=== PATIENT | female | born 1990 | race African-American/Black ===

== ENCOUNTER 2016-12-11 10:40 | Emergency (ER) | payer MEDICAID ==
[~2016-12-11] VITALS: Ht 157.5 cm; Wt 86.2 kg
[~2016-12-11 10:40] MED LIST: ALBUTEROL-200 PUFFS/ IH; ALBUTEROL2 PUFFS/17 IN; IBUPROFEN400 MG PO; IRON TABLETS325 MG PO; IRON325 MG PO; LEVOTHYROXIN0.125 MG PO; MACROBID 100MG100 MG PO; MEDROL 4MG. DOSE4 MG PO; MOTRIN 400MG.400 MG PO; NAPROSYN 500MG500 MG PO; PREDNISONE 20MG20 MG PO; PRENATAL PLUS1 TA1 PO; PRENTAL 1 PLUS1 TAB PO; SULFAMETHOXAZOL1 TA6 PO; TESSALON PERLE100 MG PO; TYLENOL ES500 M1 PO; ULTRACET 325 MG1 TAB PO; VENTOLIN H0.09 MG/AC IH; VOLTAREN75 M1 PO; ZANTAC 150150 MG PO; ZITHROMAX Z PA250 MG PO; [UNRECOGNIZED DRUG - OTHER] EX
--- NOTE | 2016-12-11 11:02 | Emergency Room Report ---
History of Present Illness Time Seen by [id number] Presenting Problem in Triage Pt arrived:Walked Presenting Problem:PT REPORTS LOWER ABD/PELVIC PAIN THAT BEGAN YESTERDAY, PT ALSO REPORTS LOWER BACK CRAMPING THAT BEGAN YESTERDAY. 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 N Clinical Suspician of Infection? N Mental Status: 1 - Regular (Normal Baseline) Sepsis Risk:Low Sepsis Risk Have you (or family members/close friends) recently traveled outside the [place]? N If Yes, where/when: Have you had exposure to infectious disease within the past month? N TB? Other? Specify: Source patient, RN notes reviewed, family, RN/MD Exam Limitations no limitations Comment This is a 26-year-old lady, 16 weeks , presenting to the emergency room with lower abdominal and low back pain, onset yesterday. Patient denies any vaginal bleeding, vaginal discharge. She is A0. Denies dysuria. Patient appears in no acute distress. ALLERGIES Coded Allergies: LACTOSE (FOOD) (VOMITING AND DIARRHEA 01/24/12) Penicillins (04/13/16) Home Medications Reported Medications Levothyroxine Sodium (Levothyroxine 0.125MG) 0.125 MG PO DAILY History Medical History General CAD? No Angina: No [place]: No Hypertension? No Hyperlipidemia? No CHF? No DVT? No PE? No COPD? No Asthma? Yes Anemia? No GERD? No Gastric ulcers? No GI Bleed? No Hernia? No Thyroid Problems? Yes Hypothyroidism? Yes CVA? No Seizures? Yes Diabetes? No Insulin Dependent: No Insulin Pump: No Home FSBS? No Renal Insuffiency? No End Stage Renal Disease? No UTI? No Stones? No BPH? No GB Disease: No Nephritic Syndrome? No Asplenia? No Hepatitis? No Sickle Cell Disease? No Arthritis? No Migraines? No Cataracts? No Glaucoma? No MRSA? No HIV? No TB? No Anxiety? No Depression? No Cancer? No More? 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 4 Months Ago Est.Due Date MAY 25, [address] CISNEROS Social History Smoking Hx Smoker: Current Every Day Smoker Tobacco: Yes Type Cigarettes Packs/day < 1 Pack Alcohol Alcohol: No Review of Systems All Other Systems Reviewed and Negative Gastrointestinal abdominal pain (lower abdominal pain) Musculoskeletal back pain Physical Exam Vital Signs Vital Signs Date Time Temp Pulse Resp B/P Pulse O2 O2 Flow FiO2 Ox Delivery Rate 12/11 1148 81 18 130/72 99 12/11 1051 99.0 86 18 139/75 99 General Appearance normal appearance, WD/WN, no apparent distress Respiratory Status Yes: trachea midline, chest symmetrical, non tender chest. No: respiratory distress. Lung Sounds bilateral: normal breath sounds, lungs clear. 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 No Comment Patient advised to follow-up with ObGyn. Patient's discomfort appears to be consistent with round ligament pain. This was expected the patient will take Tylenol as needed for pain and increase fluid intake. Results/Orders Laboratory Tests 12/11/16 1138: Beta HCG, Quant [id number] 12/11/16 1100: Urine Color YELLOW, Urine Appearance CLEAR, Urine pH 5.5, Ur Specific [place] >= 1.030, Urine Protein NEGATIVE, Urine Ketones 1+ H, Urine Blood TRACE-LYSED, Urine Nitrate NEGATIVE, Urine Bilirubin NEGATIVE, Urine Urobilinogen 0.2, Ur Leukocyte Esterase NEGATIVE, Urine RBC OCC, Urine WBC OCC, Ur Squamous Epith Cells 20-50, Urine Bacteria 2+, Urine Mucus 2+, Urine Glucose NEGATIVE Orders Procedure Date/time Status CULTURE, URINE 12/11 1100 Active US PREG > 14 WEEKS SNGL/GEST 12/11 1051 Active URINALYSIS/COMPLETE 12/11 1051 Complete BETA-HCG, QUANT 12/11 1051 Complete XRAY/CT/US XRAY/CT/US Ultrasound pelvis (transvaginal) US Interpretation by discussed w/radiologist US results 16 weeks IUP, consistent with the stated age and beta hCG Departure Departure Time of Disposition 1142 Disposition DC Home or Self Care(routine) Clinical Impression Primary Impression: Round ligament pain Condition STABLE Referrals Paras PELAEZ,Jonny Caro: 2 Days-Call Office If no better Patient Instructions DI for -- Discomforts and Remedies Additional Instructions Please follow-up with Dr. Cisneros if no better, as instructed. Work excuse attached for today. Take Tylenol for pain, drink more fluids. Discharge Counseling Counseled pt/family regarding diagnosis, test results, medications/RX, home care, follow up needs Comment Please follow-up with Dr. Cisneros if no better, as instructed. Work excuse attached for today. Take Tylenol for pain, drink more fluids. ED Critical Care Critical Care No at 1300
--- NOTE | 2016-12-11 11:02 | Emergency Room Report ---
History of Present Illness Time Seen by [id number] Presenting Problem in Triage Pt arrived:Walked Presenting Problem:PT REPORTS LOWER ABD/PELVIC PAIN THAT BEGAN YESTERDAY, PT ALSO REPORTS LOWER BACK CRAMPING THAT BEGAN YESTERDAY. 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 N Clinical Suspician of Infection? N Mental Status: 1 - Regular (Normal Baseline) Sepsis Risk:Low Sepsis Risk Have you (or family members/close friends) recently traveled outside the [place]? N If Yes, where/when: Have you had exposure to infectious disease within the past month? N TB? Other? Specify: Source patient, RN notes reviewed, family, RN/MD Exam Limitations no limitations Comment This is a 26-year-old lady, 16 weeks , presenting to the emergency room with lower abdominal and low back pain, onset yesterday. Patient denies any vaginal bleeding, vaginal discharge. She is A0. Denies dysuria. Patient appears in no acute distress. ALLERGIES Coded Allergies: LACTOSE (FOOD) (VOMITING AND DIARRHEA 01/24/12) Penicillins (04/13/16) Home Medications Reported Medications Levothyroxine Sodium (Levothyroxine 0.125MG) 0.125 MG PO DAILY History Medical History General CAD? No Angina: No [place]: No Hypertension? No Hyperlipidemia? No CHF? No DVT? No PE? No COPD? No Asthma? Yes Anemia? No GERD? No Gastric ulcers? No GI Bleed? No Hernia? No Thyroid Problems? Yes Hypothyroidism? Yes CVA? No Seizures? Yes Diabetes? No Insulin Dependent: No Insulin Pump: No Home FSBS? No Renal Insuffiency? No End Stage Renal Disease? No UTI? No Stones? No BPH? No GB Disease: No Nephritic Syndrome? No Asplenia? No Hepatitis? No Sickle Cell Disease? No Arthritis? No Migraines? No Cataracts? No Glaucoma? No MRSA? No HIV? No TB? No Anxiety? No Depression? No Cancer? No More? 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 Months Ago Est.Due Date MAY 25, [address] CISNEROS Social History Smoking Hx Smoker: Current Every Day Smoker Tobacco: Yes Type Cigarettes Packs/day < 1 Pack Alcohol Alcohol: No Review of Systems All Other Systems Reviewed and Negative Gastrointestinal abdominal pain (lower abdominal pain) Musculoskeletal back pain Physical Exam Vital Signs Vital Signs Date Time Temp Pulse Resp B/P Pulse O2 O2 Flow FiO2 Ox Delivery Rate 12/11 1148 81 18 130/72 99 12/11 1051 99.0 86 18 139/75 99 General Appearance normal appearance, WD/WN, no apparent distress Respiratory Status Yes: trachea midline, chest symmetrical, non tender chest. No: respiratory distress. Lung Sounds bilateral: normal breath sounds, lungs clear. 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 No Comment Patient advised to follow-up with ObGyn. Patient's discomfort appears to be consistent with round ligament pain. This was expected the patient will take Tylenol as needed for pain and increase fluid intake. Results/Orders Laboratory Tests 12/11/16 1138: Beta HCG, Quant [id number] 12/11/16 1100: Urine Color YELLOW, Urine Appearance CLEAR, Urine pH 5.5, Ur Specific [place] >= 1.030, Urine Protein NEGATIVE, Urine Ketones 1+ H, Urine Blood TRACE-LYSED, Urine Nitrate NEGATIVE, Urine Bilirubin NEGATIVE, Urine Urobilinogen 0.2, Ur Leukocyte Esterase NEGATIVE, Urine RBC OCC, Urine WBC OCC, Ur Squamous Epith Cells 20-50, Urine Bacteria 2+, Urine Mucus 2+, Urine Glucose NEGATIVE Orders Procedure Date/time Status CULTURE, URINE 12/11 1100 Active US PREG > 14 WEEKS SNGL/GEST 12/11 1051 Active URINALYSIS/COMPLETE 12/11 1051 Complete BETA-HCG, QUANT 12/11 1051 Complete XRAY/CT/US XRAY/CT/US Ultrasound pelvis (transvaginal) US Interpretation by discussed w/radiologist US results 16 weeks IUP, consistent with the stated age and beta hCG Departure Departure Time of Disposition 1142 Disposition DC Home or Self Care(routine) Clinical Impression Primary Impression: Round ligament pain Condition STABLE Referrals Paras PELAEZ,Jonny Caro: 2 Days-Call Office If no better Patient Instructions DI for -- Discomforts and Remedies Additional Instructions Please follow-up with Dr. Cisneros if no better, as instructed. Work excuse attached for today. Take Tylenol for pain, drink more fluids. Discharge Counseling Counseled pt/family regarding diagnosis, test results, medications/RX, home care, follow up needs Comment Please follow-up with Dr. Cisneros if no better, as instructed. Work excuse attached for today. Take Tylenol for pain, drink more fluids. ED Critical Care Critical Care No at 1305
[2016-12-11 11:09] LABS: URINE BILIRUBIN - DIPSTICK NEGATIVE (NEG); URINE BLOOD TRACE-LYSED (NEG)
[2016-12-11 11:18] LABS: URINE SQUAMOUS CELLS 20-50 #/hpf (0-5)
--- OUTSIDE RECORDS SUMMARY | 2016-12-11 11:24 | External Medical Summary Rpt ---
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 AMPLIFIED PROBE TQ IADNA 32886 PICKLESIM PICKLESIM NEISSERIA 3 ER JR YAO ER JR YAO GONORRHOE AE AMPLIFIED PROBE TQ BLOOD 22222 FAMILY FAMILY COUNT 3 CARE CARE COMPLETE ASSOCIATE ASSOCIATE AUTO&AUTO S S DIFRNTL WBC BLOOD 81171 CARLA Adamson COUNT 3 G G COMPLETE AUTO&[place] [address] CARLA Adamson THYROID 3 [place] [address] CARLA Adamson FREE 3 G G THYROXINE COMPREHEN 40853 COMBINED COMBINED SIVE 3 PHYSICIAN PHYSICIAN METABOLIC S LA S LA PANEL URINE 28487 CARLA Adamson 3 G G TEST VISUAL COLOR CMPRSN METHS 25 52776 COMBINED COMBINED HYDROXY 3 PHYSICIAN PHYSICIAN INCLUDES S LA S LA FRACTIONS IF PERFORMED US SOFT 08517 [facility] ROBBINS TISSUE 2 [facility] HEAD & INC INC NECK REAL TIME IMGE DOCM THYROID 48381 COMBINED COMBINED HORM 2 PHYSICIAN PHYSICIAN UPTK/THYR S LA S [place] [address] COMBINED COMBINED THYROXINE 2 PHYSICIAN [place] [address] COMBINED COMBINED THYROID 2 PHYSICIAN PHYSICIAN STIMULATI S LA S LA NG HORMONE TSH COLLECTIO 73678 FAMILY FAMILY N VENOUS 2 CARE CARE BLOOD ASSOCIATE ASSOCIATE VENIPUNCT S S URE SKIN TEST 08793 LAFLEUR LAFLEUR 2 GABRIEL GABRIEL TUBERCULO SIS INTRADERM AL CYTP C/V 02091 PATHOLOGY PICKLESIM AUTO THIN 2 & ER JR YAO LYR CYTOLOGY PREPJ SCR LAB MNL RESCR PHYS NEURAXIAL 52607 [facility] LABOR 2 ANESTH ANALG/ANE OF THE S PLND BLUE VAGINAL DELIVERY VAGINAL 16721 AMELIA CISNEROS DELIVERY 2 EMILY EMILY ONLY W/POSTPAR VINNIE CARE OTHER 7359 [facility] ROBBINS MANUALLY 2 [facility] ASSISTED INC INC DELIVERY INITIAL 82833 AMELIA CISNEROS OBSERVATI 2 EMILY EMILY ON CARE/DAY 50 MINUTES BLOOD 81228 STRAWZELL LUIS AYA COUNT 2 CRI COMPLETE AUTO&AUTO DIFRNTL WBC GLUCOSE 07012 AMELIA CISNEROS TOLERANCE 2 EMILY EMILY TEST GTT 3 SPECIMENS 90368 [facility] ROBBINS NONSTRESS 2 [facility] TEST INC INC SMR PRIM 77878 [facility] ROBBINS SRC WET 2 [facility] MOUNT INC INC NFCT AGT US PREG 78928 AMELIA CISNEROS UTERUS 2 EMILY EMILY AFTER 1ST TRIMEST 1/ GESTATION US PREG 65923 [facility] UTERUS 1 YAZDANISM YAZDANISM W/DETAIL HOSP HOSP YASSINE 1ST GESTATION ALPHA-FET 99315 ROS[facility]O ROBBINS OPROTEIN 1 [facility] SERUM INC INC GONADOTRO 02216 [facility] ROBBINS PIN 1 [facility] CH[place] [address] [facility] ROBBINS ESTRIOL 1 [facility] [place] PREG 31785 WOMEN'S AMELIA UTERUS 1 HEALTH EMILY REAL TIME CLINIC OF W/IMAGE GABRIEL DCMTN TRANSVAG BLOOD 84949 FAMILY FAMILY COUNT 1 CARE CARE COMPLETE ASSOCIATE ASSOCIATE AUTO&AUTO S S DIFRNTL WBC IAADI 11116 [facility] ROBBINS INFLUENZA 1 [facility] B VIRUS INC INC IAADI 82808 [facility] ROBBINS INFFLUENZ 1 [facility] A A VIRUS INC INC CYTP C/V 42388 PATHOLOGY PATHOLOGY AUTO THIN 1 & & LYR CYTOLOGY CYTOLOGY PREPJ SCR LAB LAB MNL RESCR PHYS MOLEC 05941 MOLECULAR MOLECULAR ISOL/XTRJ 1 HP PATHOLOGY PATHOLOGY NUCLEIC LAB NETW LAB NETW ACID EA TYPE MOLECULAR 77919 MOLECULAR MOLECULAR DX AMP 1 TARGET PATHOLOGY PATHOLOGY MULTIPLEX LAB NETW LAB NETW 1ST 2 SEQ MOLECULAR 75561 MOLECULAR MOLECULAR 1 DIAGNOSTI PATHOLOGY PATHOLOGY CS LAB NETW LAB NETW INTERPRET ATION & REPORT MUTATION 49698 MOLECULAR MOLECULAR ID 1 ENZYMATIC PATHOLOGY PATHOLOGY LAB NETW LAB NETW LIG/PRIME R XTN 1 SGM EA IADNA 87906 PATHOLOGY PATHOLOGY CHLAMYDIA 1 & & CYTOLOGY CYTOLOGY TRACHOMAT LAB LAB IS AMPLIFIED PROBE TQ MOLECULAR 12141 MOLECULAR MOLECULAR DX AMP 1 TARGET PATHOLOGY PATHOLOGY MULTIPLEX LAB NETW LAB NETW EA ADDL SEQ MOLEC 08593 MOLECULAR MOLECULAR SEP&ID HI 1 RESOLU PATHOLOGY PATHOLOGY TQ EACH LAB NETW LAB NETW NUCLEIC ACID PREP IADNA 43074 PATHOLOGY PATHOLOGY NEISSERIA 1 & & CYTOLOGY CYTOLOGY GONORRHOE LAB LAB AE AMPLIFIED PROBE TQ URNLS DIP 08374 [facility] ROBBINS 1 [facility] STICK/TAB INC INC LET REAGENT AUTO MICROSCOP Y US PREG 42945 [place] TOÑITO UTERUS 1 MEDICAL JOSE REAL TIME IMAGING W/IMAGE ASS DCMTN TRANSVAG CULTURE 35056 [facility] ROBBINS BACTERIAL 1 [facility] INC INC QUANTTATI VE COLONY COUNT URINE URNLS DIP 91607 ROS[facility] ROSENDO 1 [facility] STICK/TAB INC INC LET REAGENT AUTO MICROSCOP Y URINE 87195 ROSENDO ROSENDO 1 [facility] CENTER VISUAL COLOR CMPRSN METHS URINE 45923 ROSENDO ROSENDO 1 [facility] TEST INC INC VISUAL COLOR CMPRSN METHS CULTURE 06249 [facility] ROBBINS BACTERIAL 1 [facility] INC INC QUANTTATI VE COLONY COUNT URINE CULTURE 79768 [facility] ROBBINS BCT 1 [facility] ISOL&PRSM INC INC PTV ID ISOLATE EA URINE URNLS DIP 05352 [facility] ROBBINS 1 [facility] STICK/TAB INC INC LET REAGENT AUTO MICROSCOP Y SUSCEPTIB 71310 [facility] ROBBINS LTY STDY 1 [facility] ANTIMICRB INC INC IAL MICRO/AGA R DILUTJ US BREAST 59079 [place] TOÑITO REAL 1 MEDICAL JOSE TIME IMAGING W/IMAGE ASS DOCUMENTA TION CYTP 48720 [facility] CERV/VAG 1 [place] INC AUTO THIN LAYER PREP MNL SCREEN BLOOD 85250 FAMILY FAMILY COUNT 0 CARE CARE COMPLETE ASSOCIATE ASSOCIATE AUTO&AUTO S S DIFRNTL WBC BLOOD 94354 FAMILY FAMILY COUNT 0 CARE CARE COMPLETE ASSOCIATE ASSOCIATE AUTO&AUTO S S DIFRNTL WBC IADNA 62371 [facility] ROBBINS CHLAMYDIA 0 [facility] C[facility] TRACHOMAT IS AMPLIFIED PROBE TQ CONTRACEP A4267 [facility] ROBBINS TIVE 0 [facility] SUPPLY CHESTER CENTER CONDOM MALE EACH IADNA 59770 ROS[facility] ROBBINS NEISSERIA 0 [facility] GONORRHOE AE AMPLIFIED PROBE TQ DME A9900 ROS[facility] ROBBINS SUP/ACCES 0 [facility] HEALTH S/SRV-COM CENTER CENTER ARACELI/OTH HCPCS URINE 51006 ROS[facility] ROBBINS 0 [facility] TEST CENTER CENTER [place] [address] ROS[facility]O ROBBINS LIPASE 0 [place] [address] ROSENDO ROBBINS THYROID 0 [facility] STIMULATI [place] [address] [facility] ROBBINS AMYLASE 0 [facility] INC INC COMPREHEN 44409 [facility] ROBBINS SIVE 0 [facility] METABOLIC INC INC PANEL IADNA 75450 MEDICAL MEDICAL NEISSERIA 0 [facility] GONORRHOE AE AMPLIFIED PROBE TQ IADNA 94176 MEDICAL MEDICAL CHLAMYDIA 0 [facility] TRACHOMAT IS AMPLIFIED PROBE TQ IADNA NOS 76038 MEDICAL MEDICAL 0 DIAGNOSTI DIAGNOSTI AMPLIFIED [facility] PROBE TQ EACH ORGANISM IADNA 41391 MEDICAL MEDICAL DENNY 0 [facility]AGNOSTI DIAGNOST[facility] SPECIES [facility] AMPLIFIED PROBE TQ IADNA 96583 MEDICAL MEDICAL GARDNEREL 0 DIAGNOSTI DIAGNOSTI LA [facility] VAGINALIS AMPLIFIED PROBE TQ DEEP D9220 [facility] SEDATION/ 0 , KAVEH LINN W W ANESTHESI A-1ST 30 MINUTES THER 06659 [facility] PROPH/DX 0 , KAVEH LINN NJX IV W W PUSH SINGLE/1S T SBST/DRUG GROUND A0425 [facility] 9 AMBULANCE AMBULANCE PER SERVICE SERVICE STATUTE MILE AMBULANCE A0429 [facility] SERVICE 9 AMBULANCE AMBULANCE BLS [place]ICE [place] [address] [place] TOÑITO, MAXILLOFA 9 MEDICAL NGHIA CIAL W/O IMAGING CONTRAST ASSOCIATE MATERIAL S 3D 13660 [facility] ROBBINS RENDERING 9 [facility] INC INC W/INTERP& POSTPROC DIFF WORK STATION OPH 37422 MARK ANTHONY GONZALEZ [facility] 9 VISION BROOKE A XM&EVAL COMPRHNSV ESTAB PT 1/> COMPREHEN 65388 COMBINED COMBINED SIVE 9 PHYSICIAN PHYSICIAN METABOLIC S LAB S LAB PANEL PROTHROMB 70143 COMBINED COMBINED IN TIME 9 PHYSICIAN PHYSICIAN S LAB S LAB THROMBOPL 49993 COMBINED COMBINED ASTIN 9 PHYSICIAN PHYSICIAN TIME S LAB S LAB PARTIAL PLASMA/WH OLE BLOOD BLOOD 90281 FAMILY SIMIN, COUNT 9 CARE GHAZAL T COMPLETE ASSOCIATE AUTO&AUTO S DIFRNTL WBC CONTRACEP J7303 [facility]/CO [facility] T SUPPLY 9 [facility] HORMONE [facility] CONTAININ BANK ACCT G VAG RING EA URINE 42609 DHS/CO [facility] 9 [facility] TEST [facility] VISUAL BANK ACCT COLOR CMPRSN METHS IADNA 17371 [facility] NEISSERIA 9 [facility] GONORRHOE BANK ACCT AE AMPLIFIED PROBE TQ SMR PRIM 90601 [facility] SRC WET 9 [facility] MOUNT [facility] NFCT AGT BANK ACCT IADNA 40384 [facility] CHLAMYDIA 9 [facility] TRACHOMAT BANK ACCT IS AMPLIFIED PROBE TQ CONTRACEP A4267 [facility]/CO [facility] TIVE 9 [facility] SUPPLY [facility] CONDOM BANK ACCT MALE EACH CYTP 16259 [facility] CERV/VAG 9 [facility] AUTO THIN [facility] LAYER BANK ACCT PREP MNL SCREEN RADIOLOGI 81755 Mary MICHAEL EXAM 9 MEDICAL [place] CHEST 2 IMAGING VIEWS ASSOCIATE FRONTAL&L S ATERAL BLOOD 75821 Snow MELENDEZ COUNT 8 CARE G COMPLETE ASSOCIATE AUTO&AUTO S DIFRNTL WBC IAADIADOO 02430 Snow MELENDEZ 8 CARE G STREPTOCO ASSOCIATE CCUS S GROUP A PARTICLE 72712 COMBINED COMBINED AGGLUTINA 8 PHYSICIAN PHYSICIAN TION S LAB S LAB SCREEN EACH ANTIBODY IADNA 77224 [facility] NEISSERIA [address] [place] [address] GONORRHOE BANK ACCT AE AMPLIFIED PROBE TQ CYTP 01577 DHS/CO [facility] CERV/VAG 8 [facility] AUTO THIN [facility] LAYER BANK ACCT PREP MNL SCREEN IADNA 64560 [facility]/CO [facility] CHLAMYDIA [address] [place] [address] TRACHOMAT BANK ACCT IS AMPLIFIED PROBE TQ CONTRACEP A4267 DHS/CO [facility] TIVE [address] [place] [address] SUPPLY [facility] CONDOM BANK ACCT MALE EACH CONTRACEP J7303 [facility]/CO [facility] T SUPPLY [address] [place] [address] HORMONE [facility] CONTAININ BANK ACCT G VAG RING EA Encounters Encounter Start End Date Code Location Performer Type Date OFFICE 44575 [facility] AMELIA MATHEW 7 7 PHYSICIAN T VISIT S GROUP 25 MINUTES EMERGENCY 88914 KYE CARTER 6 6 PHYSICIAN MANUEL DEPARTMEN S, PLLC T VISIT MODERATE SEVERITY [facility]OSP[facility] - 6 6 [facility] OUTPATIEN INC T EMERGENCY 51014 [facility] 6 6 [facility] DEPARTMEN INC T VISIT LIMITED/M INOR PROB OFFICE 49217 [facility] MARK OUTPATIEN 6 6 PHYSICIAN MOON T VISIT S GROUP 15 MINUTES HOSPITAL [facility] - 6 6 [facility] OUTPATIEN INC T OFFICE 03042 [facility] FLORES OUTPATIEN 6 6 PHYSICIAN MOON T NEW 30 S GROUP MINUTES HOSPITAL [facility] - 6 6 [facility] OUTPATIEN INC T PERIODIC 51715 FAMILY MULBERRY PREVENTIV 6 6 CARE ARMANI E MED EST ASSOCIATE PATIENT S 18-39 YRS OFFICE 42680 [facility] RAMAN PAK OUTPATIEN 5 5 PHYSICIAN T VISIT S GROUP 15 MINUTES OFFICE 10140 [facility] RIZO OUTPATIEN 5 5 [facility] 15 MINUTES HOSPITAL 1021-201 10-21-201 [facility] - 5 5 [facility] OUTPATIEN INC T HOSPITAL [facility] - 5 5 [facility] OUTPATIEN INC T OFFICE 32753 [facility] PETTEY OUTPATIEN 5 5 PHYSICIAN JAM T NEW 30 S GROUP MINUTES HOSPITAL [facility] - 5 5 [facility] OUTPATIEN INC HOSPITAL [facility] - 5 5 [facility] OUTPATIEN INC T OFFICE 57934 FAMILY CROWDY OUTPATIEN 5 5 CARE CRI T VISIT ASSOCIATE 25 S MINUTES EMERGENCY 20479 KYE CARTER 5 5 PHYSICIAN MANUEL DEPARTMEN S, PLLC T VISIT HIGH/URGE NT SEVERITY OFFICE 72507 [facility] EMMA OUTPATIEN 4 4 PHYSICIAN MANUEL T NEW 20 S GROUP MINUTES PERIODIC 17590 [facility] PREVENTIV 4 4 PHYSICIAN E MED EST S GROUP PATIENT 18-39 YRS Inpatient IMP Rosendo Cisneros MD (IN) 3 04:55 3 15:20 [facility] - 3 3 [facility] INPATIENT INC OFFICE 57832 AMELIA CISNEROS OUTPATIEN 3 3 EMILY EMILY T VISIT 15 MINUTES OFFICE 43111 AMELIA CISNEROS OUTPATIEN 3 3 EMILY EMILY T VISIT 15 MINUTES OFFICE 05279 CISNEROS CISNEROS OUTPATIEN 3 3 EMILY EMILY T VISIT 15 MINUTES OFFICE 37983 HARPEL HARPEL OUTPATIEN 3 3 MARLENY MARLENY T VISIT 15 MINUTES OFFICE 45154 AMELIA CISNEROS OUTPATIEN 3 3 EMILY EMILY T VISIT 15 MINUTES OFFICE 02921 AMELIA CISNEROS OUTPATIEN 3 3 EMILY EMILY T VISIT 15 MINUTES OFFICE 69529 AMELIA CISNEROS OUTPATIEN 3 3 EMILY EMILY T VISIT 15 MINUTES OFFICE 73436 AMELIA CISNEROS OUTPATIEN 3 3 EMILY EMILY T VISIT 5 MINUTES OFFICE 49929 AMELIA CISNEROS OUTPATIEN 3 3 EMILY EMILY T VISIT 15 MINUTES OFFICE 27961 MULBERRY MULBERRY OUTPATIEN 3 3 ARMANI ARMANI T VISIT 15 MINUTES OFFICE 93896 AMELIA CISNEROS OUTPATIEN 3 3 EMILY EMILY T VISIT 15 MINUTES OFFICE 07725 FAMILY OUTPATIEN 3 3 CARE T VISIT ASSOCIATE 15 S MINUTES OFFICE 54363 CARLA Adamson OUTPATIEN 3 3 G G T VISIT 15 MINUTES HOSPITAL [facility] - 2 2 [facility] OUTPATIEN INC T OFFICE 38558 FAMILY OUTPATIEN 2 2 CARE T VISIT ASSOCIATE 15 S MINUTES HOSPITAL [facility] - 2 2 [facility] OUTPATIEN INC T EMERGENCY 34943 TROY BHAT 2 2 EMERGENCY DEPARTMEN SERVICES T VISIT HIGH/URGE NT SEVERITY EMERGENCY 89816 [facility] 2 2 [facility] DEPARTMEN INC T VISIT LOW/MODER SEVERITY EMERGENCY 76453 EMMA CARTER 2 2 MANUEL MANUEL DEPARTMEN T VISIT HIGH/URGE NT SEVERITY EMERGENCY 28064 [facility] 2 2 [facility] DEPARTMEN INC T VISIT LIMITED/M INOR PROB HOSPITAL [facility] - 2 2 [facility] OUTPATIEN INC T PERIODIC 86030 JAVIER HERRERA PREVENTIV 2 2 MARIANA MARIANA E MED EST PATIENT 18-39 YRS HOSPITAL [facility] - 2 2 [facility] INPATIENT INC OFFICE 43677 STRAWZELL STRAWZELL OUTPATIEN 2 2 CRI CRI T VISIT 15 MINUTES OFFICE 61868 AMELIA CISNEROS OUTPATIEN 2 2 EMILY EMILY T VISIT 5 MINUTES OFFICE 19274 CISNEROS CISNEROS OUTPATIEN 2 2 EMILY EMILY T VISIT 15 MINUTES HOSPITAL [facility] - 2 2 [facility] OUTPATIEN INC T OFFICE 62279 LUIS WILLARD CONSULTAT 1 1 JOSE JOSE ION NEW/ESTAB PATIENT 30 MIN HOSPITAL CENTRAL - 1 1 YAZDANISM OUTPATIEN HOSP T HOSPITAL [facility] - 1 1 [facility] OUTPATIEN INC T OFFICE 71478 [facility] OUTPATIEN 1 1 HEALTH EMILY T VISIT CLINIC OF 15 GABRIEL MINUTES OFFICE 80383 FAMILY SIMIN OUTPATIEN 1 1 CARE ARMANI T VISIT ASSOCIATE 15 S MINUTES EMERGENCY 34910 [facility] 1 1 [facility] DEPARTMEN INC T VISIT LOW/MODER SEVERITY EMERGENCY 77875 TROY CARTER 1 1 EMERGENCY MANUEL DEPARTMEN SERVICES T VISIT HIGH/URGE NT SEVERITY HOSPITAL [facility] - 1 1 [facility] OUTPATIEN INC T EMERGENCY 03467 [facility] 1 1 [facility] DEPARTMEN INC T VISIT LOW/MODER SEVERITY [facility]OSPITAL [facility] - 1 1 [facility] OUTPATIEN INC T EMERGENCY 80889 TROY MISHRA 1 1 EMERGENCY DEPARTMEN SERVICES T VISIT HIGH/URGE NT SEVERITY EMERGENCY 69587 [facility] 1 1 [facility] DEPARTMEN INC T VISIT LOW/MODER SEVERITY EMERGENCY 96153 TROY MISHRA 1 1 EMERGENCY DEPARTMEN SERVICES T VISIT HIGH/URGE NT SEVERITY HOSPITAL [facility] - 1 1 [facility] OUTPATIEN INC T OFFICE 82704 [facility] ROBBINS OUTPATIEN 1 1 [facility] T VISIT CENTER CENTER 15 MINUTES HOSPITAL [facility] - 1 1 [facility] OUTPATIEN INC T OFFICE 40981 FAMILY DUVAL OUTPATIEN 1 1 CARE ARMANI T VISIT ASSOCIATE 15 S MINUTES HOSPITAL [facility] - 1 1 [facility] OUTPATIEN INC T OFFICE 44678 FAMILY DUVAL OUTPATIEN 0 0 CARE ARMANI T VISIT ASSOCIATE 15 S MINUTES OFFICE 19143 FAMILY SIMIN OUTPATIEN 0 0 CARE ARMANI T VISIT ASSOCIATE 15 S MINUTES OFFICE 31245 [facility] ROBBINS OUTPATIEN 0 0 [facility] T VISIT CENTER CENTER 15 MINUTES HOSPITAL [facility] - 0 0 [facility] OUTPATIEN INC T EMERGENCY 01816 [facility] 9 9 [facility] DEPARTMEN INC T VISIT LOW/MODER SEVERITY [facility]OSPITAL [facility] - 9 9 [facility] OUTPATIEN INC T EMERGENCY 79980 TROY BAEZ, 9 9 EMERGENCY JHON DEPARTMEN SERVICES O T VISIT HIGH/URGE ASSOCIATE NT S SEVERITY OFFICE 68041 KATNABILAMICHELLEEN 9 9 CARE GHAZAL T T VISIT ASSOCIATE 25 S MINUTES PERIODIC 54457 [facility] PREVENTIV 9 9 [facility] PATIENT BANK ACCT [facility] - 9 9 [facility] OUTPATIEN INC T EMERGENCY 40345 [facility] 9 9 [facility] DEPARTMEN INC T VISIT LOW/MODER SEVERITY EMERGENCY 94975 TROY CARTER, 9 9 EMERGENCY MELAI DEPARTMEN SERVICES T VISIT HIGH/URGE ASSOCIATE NT S SEVERITY OFFICE 85150 Snow MELENDEZ 8 8 CARE G T VISIT ASSOCIATE 15 S MINUTES INITIAL 18920 [facility] PREVENTIV 8 8 HEALTH IN HEALTH E [facility] MEDICINE BANK ACCT NEW PT AGE 12-17 YR
--- OUTSIDE RECORDS SUMMARY | 2016-12-11 11:24 | External Medical Summary Rpt ---
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 INC T VISIT LIMITED/M INOR PROB OFFICE 64920 [facility] MARK OUTPATIEN 6 6 PHYSICIAN MOON T VISIT S GROUP 15 MINUTES HOSPITAL [facility] - 6 6 [facility] T OFFICE 93324 [facility] FLORES OUTPATIEN 6 6 PHYSICIAN MOON T NEW 30 S GROUP MINUTES HOSPITAL [facility] 6 6 [facility] OUTPATIEN INC T PERIODIC 14441 FAMILY MULBERRY PREVENTIV 6 6 CARE ARMANI E MED EST ASSOCIATE PATIENT S 18-39 YRS OFFICE 90113 [facility] RAMAN PAK OUTPATIEN 5 5 PHYSICIAN T VISIT S GROUP 15 MINUTES OFFICE 04114 [facility] RIZO OUTPATIEN 5 5 [facility] 15 MINUTES HOSPITAL 1021-201 10-21-201 [facility] - 5 5 [facility] OUTPATIEN INC T HOSPITAL [facility] - 5 5 [facility] OUTPATIEN INC T OFFICE 31797 [facility] PETTEY OUTPATIEN 5 5 PHYSICIAN JAM T NEW 30 S GROUP MINUTES HOSPITAL [facility] 5 5 [facility] OUTPATIEN INC HOSP[facility] - 5 5 [facility] OUTPATIEN INC T OFFICE 66119 FAMILY CROWDY OUTPATIEN 5 5 CARE CRI T VISIT ASSOCIATE 25 S MINUTES EMERGENCY 19356 KYE CARTER 5 5 PHYSICIAN MANUEL DEPARTMEN S, PLLC T VISIT HIGH/URGE NT SEVERITY OFFICE 11894 [facility] EMMA OUTPATIEN 4 4 PHYSICIAN MANUEL T NEW 20 S GROUP MINUTES PERIODIC 59601 [facility] PREVENTIV 4 4 PHYSICIAN E MED EST S GROUP PATIENT 18-39 YRS Inpatient IMP Rosendo Cisneros MD (IN) 3 04:55 3 15:20 [facility] - 3 3 [facility] INPATIENT INC OFFICE 66671 AMELIA CISNEROS OUTPATIEN 3 3 EMILY EMILY T VISIT 15 MINUTES OFFICE 37845 AMELIA CISNEROS OUTPATIEN 3 3 EMILY EMILY T VISIT 15 MINUTES OFFICE 04622 CISNEROS CISNEROS OUTPATIEN 3 3 EMILY EMILY T VISIT 15 MINUTES OFFICE 11080 HARPEL HARPEL OUTPATIEN 3 3 MARLENY MARLENY T VISIT 15 MINUTES OFFICE 77044 AMELIA CISNEROS OUTPATIEN 3 3 EMILY EMILY T VISIT 15 MINUTES OFFICE 42739 AMELIA CISNEROS OUTPATIEN 3 3 EMILY EMILY T VISIT 15 MINUTES OFFICE 68619 AMELIA CISNEROS OUTPATIEN 3 3 EMILY EMILY T VISIT 15 MINUTES OFFICE 72384 AMELIA CISNEROS OUTPATIEN 3 3 EMILY EMILY T VISIT 5 MINUTES OFFICE 66580 AMELIA CISNEROS OUTPATIEN 3 3 EMILY EMILY T VISIT 15 MINUTES OFFICE 13522 MULBERRY MULBERRY OUTPATIEN 3 3 ARMANI ARMANI T VISIT 15 MINUTES OFFICE 33993 AMELIA CISNEROS OUTPATIEN 3 3 EMILY EMILY T VISIT 15 MINUTES OFFICE 91353 FAMILY OUTPATIEN 3 3 CARE T VISIT ASSOCIATE 15 S MINUTES OFFICE 49270 CARLA Adamson OUTPATIEN 3 3 G G T VISIT 15 MINUTES HOSPITAL [facility] - 2 2 [facility] OUTPATIEN INC T OFFICE 15056 FAMILY OUTPATIEN 2 2 CARE T VISIT ASSOCIATE 15 S MINUTES HOSPITAL [facility] - 2 2 [facility] OUTPATIEN INC T EMERGENCY 39421 TROY BHAT 2 2 EMERGENCY DEPARTMEN SERVICES T VISIT HIGH/URGE NT SEVERITY EMERGENCY 45074 [facility] 2 2 [facility] DEPARTMEN INC T VISIT LOW/MODER SEVERITY EMERGENCY 41593 EMMA CARTER 2 2 MANUEL MANUEL DEPARTMEN T VISIT HIGH/URGE NT SEVERITY EMERGENCY 54106 [facility] 2 2 [facility] DEPARTMEN INC T VISIT LIMITED/M INOR PROB HOSPITAL [facility] - 2 2 [facility] OUTPATIEN INC T PERIODIC 45090 JAVIER HERRERA PREVENTIV 2 2 MARIANA MARIANA E MED EST PATIENT 18-39 YRS HOSPITAL [facility] - 2 2 [facility] INPATIENT INC OFFICE 57591 STRAWZELL STRAWZELL OUTPATIEN 2 2 CRI CRI T VISIT 15 MINUTES OFFICE 27009 AMELIA CISNEROS OUTPATIEN 2 2 EMILY EMILY T VISIT 5 MINUTES OFFICE 10466 CISNEROS CISNEROS OUTPATIEN 2 2 EMILY EMILY T VISIT 15 MINUTES HOSPITAL [facility] 2 2 [facility] OUTPATIEN INC T OFFICE 85116 LUIS BANNER CONSULTAT 1 1 JOSE JOSE ION NEW/ESTAB PATIENT 30 MIN HOSPITAL [facility]AL - 1 1 SCIENTOLOGIST OUTPATIEN HOSP T HOSPITAL [facility] - 1 1 [facility] OUTPATIEN INC T OFFICE 26092 [facility] OUTPATIEN 1 1 HEALTH EMILY T VISIT CLINIC OF 15 GABRIEL MINUTES OFFICE 49402 FAMILY SIMIN OUTPATIEN 1 1 CARE ARMANI T VISIT ASSOCIATE 15 S MINUTES EMERGENCY 36198 [facility] 1 1 [facility] DEPARTMEN INC T VISIT LOW/MODER SEVERITY EMERGENCY 57143 TROY CARTER 1 1 EMERGENCY MANUEL DEPARTMEN SERVICES T VISIT HIGH/URGE NT SEVERITY HOSPITAL [facility] - 1 1 [facility] OUTPATIEN INC T EMERGENCY 87137 [facility] 1 1 [facility] DEPARTMEN INC T VISIT LOW/MODER SEVERITY [facility]OSPITAL [facility] - 1 1 [facility] OUTPATIEN INC T EMERGENCY 53037 TROY MISHRA 1 1 EMERGENCY DEPARTMEN SERVICES T VISIT HIGH/URGE NT SEVERITY EMERGENCY 14354 [facility] 1 1 [facility] DEPARTMEN INC T VISIT LOW/MODER SEVERITY EMERGENCY 21553 TROY MISHRA 1 1 EMERGENCY DEPARTMEN SERVICES T VISIT HIGH/URGE NT SEVERITY HOSPITAL [facility] - 1 1 [facility] OUTPATIEN INC T OFFICE 38469 [facility] RBOBINS OUTPATIEN 1 1 [facility] T VISIT CENTER CENTER 15 MINUTES HOSPITAL [facility] - 1 1 [facility] OUTPATIEN INC T OFFICE 32508 FAMILY DUVAL OUTPATIEN 1 1 CARE ARMANI T VISIT ASSOCIATE 15 S MINUTES HOSPITAL [facility] - 1 1 [facility] OUTPATIEN INC T OFFICE 81939 FAMILY DUVAL OUTPATIEN 0 0 CARE ARMANI T VISIT ASSOCIATE 15 S MINUTES OFFICE 18106 FAMILY SIMIN OUTPATIEN 0 0 CARE ARMANI T VISIT ASSOCIATE 15 S MINUTES OFFICE 81329 [facility] ROBBINS OUTPATIEN 0 0 [facility] T VISIT CENTER CENTER 15 MINUTES HOSPITAL [facility] - 0 0 [facility] OUTPATIEN INC T EMERGENCY 96556 [facility] 9 9 [facility] DEPARTMEN INC T VISIT LOW/MODER SEVERITY HOSPITAL [facility] - 9 9 [facility] OUTPATIEN INC T EMERGENCY 90109 TROY BAEZ, 9 9 EMERGENCY JHON DEPARTMEN SERVICES O T VISIT HIGH/URGE ASSOCIATE NT S SEVERITY OFFICE 27690 KATNABILAMICHELLEEN 9 9 CARE GHAZAL T T VISIT ASSOCIATE 25 S MINUTES PERIODIC 87672 DHS/CO [facility] PREVENTIV 9 9 [facility] E [facility] PATIENT BANK ACCT [facility] - 9 9 [facility] OUTPATIEN INC T EMERGENCY 44032 [facility] 9 9 [facility] DEPARTMEN INC T VISIT LOW/MODER SEVERITY EMERGENCY 48578 TROY CARTER, 9 9 EMERGENCY MELIA DEPARTMEN SERVICES T VISIT HIGH/URGE ASSOCIATE NT S SEVERITY OFFICE 58297 Snow MELENDEZ 8 8 CARE G T VISIT ASSOCIATE 15 S MINUTES INITIAL 51030 DHS/CO [facility] PREVENTIV 8 8 [facility] MEDICINE BANK ACCT NEW PT AGE 12-17 YR
--- OUTSIDE RECORDS SUMMARY | 2016-12-11 11:29 | External Medical Summary Rpt ---
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 IAADIADOO 39080 Snow MELENDEZ 8 CARE G STREPTOCO ASSOCIATE CCUS S GROUP A PARTICLE 15875 COMBINED COMBINED AGGLUTINA 8 PHYSICIAN PHYSICIAN ALENA Johnson LAB S LAB SCREEN EACH ANTIBODY IADNA 76424 DHS/CO [facility] NEISSERIA [address] [place] [address] GONORRHOE BANK ACCT AE AMPLIFIED PROBE TQ CONTRACEP A4267 DHS/CO [facility] TIVE [address] [place] [address] HEALTH SUPPLY [facility] CONDOM BANK ACCT MALE EACH CYTP 42016 DHS/CO MAX MEADOWS CERV/VAG [address] [place] [address] AUTO THIN [facility] LAYER BANK ACCT PREP MNL SCREEN IADNA 58178 DHS/CO MAX MEADOWS CHLAMYDIA [address] [place] [address] TRACHOMAT BANK ACCT IS AMPLIFIED PROBE TQ CONTRACEP J7303 DHS/CO [facility] T SUPPLY [address] [place] [address] [facility]ORM[facility] CONTAININ BANK ACCT G VAG RING EA Encounters Encounter Start End Date Code Location Performer Type Date OFFICE 98831 [facility] AMELIA MATHEW 7 7 PHYSICIAN T VISIT S GROUP 25 MINUTES HOSPITAL [facility] - 6 6 [facility] OUTPATIEN [facility] [address] [facility] [address] [facility] T VISIT LIMITED/M INOR PROB EMERGENCY 97755 KYE CARTER 6 6 PHYSICIAN [facility] MODERATE SEVERITY OFFICE 10854 [facility] MARK MATHEW 6 6 PHYSICIAN MOON T VISIT S GROUP 15 MINUTES HOSPITAL [facility] - 6 6 [facility] OUTPATIEN [facility], [facility] OFF[facility] 71494 [facility] MARK MATHEW 6 6 PHYSICIAN MOON T NEW 30 S GROUP MINUTES PERIODIC 80828 MULBERRY PREVENTIV 6 6 CARE ARMANI E MED EST ASSOCIATE PATIENT S 18-39 YRS OFFICE 92942 [facility] [address] OUTPATIEN 5 5 PHYSICIAN T VISIT S GROUP 15 MINUTES OFFICE 33290 [facility] RIZO OUTPATIEN 5 5 [facility] 15 MINUTES [facility] - 5 5 [facility] T [facility] - 5 5 [facility] INC T OFFICE 08908 [facility] PETTEY OUTPATIEN 5 5 PHYSICIAN JAM T NEW 30 S GROUP MINUTES HOSPITAL [facility] - 5 5 [facility] OUTPATIEN INC H[facility] - 5 5 [facility] OUTPATIEN INC T OFFICE 56891 FAMILY CROWDY OUTPATIEN 5 5 CARE CRI T VISIT ASSOCIATE 25 S MINUTES EMERGENCY 83602 KYE CARTER 5 5 PHYSICIAN MANUEL DEPARTMEN S, PLLC T VISIT HIGH/URGE NT SEVERITY OFFICE 01076 [facility] EMMA OUTPATIEN 4 4 PHYSICIAN MANUEL T NEW 20 S GROUP MINUTES PERIODIC 38843 [facility] PREVENTIV 4 4 PHYSICIAN E MED EST S GROUP PATIENT 18-39 YRS HOSPITAL [facility] - 3 3 [facility] INPATIENT INC OFFICE 50915 AMELIA CISNEROS OUTPATIEN 3 3 EMILY EMILY T VISIT 15 MINUTES OFFICE 01495 AMELIA HIE OUTPATIEN 3 3 EMILY EMILY T VISIT 15 MINUTES OFFICE 77596 AMELIA HIE OUTPATIEN 3 3 EMILY EMILY T VISIT 15 MINUTES OFFICE 14645 HARPEL HARPEL OUTPATIEN 3 3 MARLENY MARLENY T VISIT 15 MINUTES OFFICE 98255 AMELIA HIE OUTPATIEN 3 3 EMILY EMILY T VISIT 15 MINUTES OFFICE 35044 CISNEROS CISNEROS OUTPATIEN 3 3 EMILY EMILY T VISIT 15 MINUTES OFFICE 52248 CISNEROS CISNEROS OUTPATIEN 3 3 EMILY EMILY T VISIT 15 MINUTES OFFICE 32389 CISNEROS CISNEROS OUTPATIEN 3 3 EMILY EMILY T VISIT 5 MINUTES OFFICE 57331 CISNEROS CISNEROS OUTPATIEN 3 3 EMILY EMILY T VISIT 15 MINUTES OFFICE 75755 MULBERRY MULBERRY OUTPATIEN 3 3 ARMANI ARMANI T VISIT 15 MINUTES OFFICE 50545 CISNEROS CISNEROS OUTPATIEN 3 3 EMILY EMILY T VISIT 15 MINUTES OFFICE 21815 FAMILY OUTPATIEN 3 3 CARE T VISIT ASSOCIATE 15 S MINUTES OFFICE 18069 CARLA Adamson OUTPATIEN 3 3 G G T VISIT 15 MINUTES HOSPITAL [facility] - 2 2 [facility] INC T OFFICE 99764 FAMILY OUTPATIEN 2 2 CARE T VISIT ASSOCIATE 15 S MINUTES EMERGENCY 67924 TROY BHAT 2 2 EMERGENCY DEPARTMEN SERVICES T VISIT HIGH/URGE NT SEVERITY HOSPITAL [facility] - 2 2 [facility] OUTPATIEN INC T EMERGENCY 82862 [facility] 2 2 [facility] DEPARTMEN INC T VISIT LOW/MODER SEVERITY EMERGENCY 66533 EMMA CARTER 2 2 [facility] DEPARTMEN T VISIT HIGH/URGE NT SEVERITY EMERGENCY 52655 [facility] 2 2 [facility] DEPARTMEN INC T VISIT LIMITED/M INOR PROB HOSPITAL [facility] - 2 2 [facility] OUTPATIEN INC T PERIODIC 61355 JAVIER HERRERA PREVENTIV 2 2 MARIANA MARIANA E MED EST PATIENT 18-39 YRS HOSPITAL [facility] - 2 2 [facility] INPATIENT INC OFFICE 59916 STRAWZELL STRAWZELL OUTPATIEN 2 2 CRI CRI T VISIT 15 MINUTES OFFICE 12545 AMELIA CISNEROS OUTPATIEN 2 2 EMILY EMILY T VISIT 5 MINUTES HOSPITAL [facility] - 2 2 [facility] OUTPATI[facility] INC T OFFICE 88367 AMELIA CISNEROS OUTPATIEN 2 2 EMILY EMILY T VISIT 15 MINUTES OFFICE 80871 LUIS SMITH CONSULTAT 1 1 JOSE JOSE ION NEW/ESTAB PATIENT 30 MIN [facility] - 1 1 [facility] OUT[facility] INC T OFFICE 52655 [facility] 1 1 HEALTH EMILY T VISIT CLINIC OF 15 GABRIEL MINUTES OFFICE 85184 FAMILY SIMIN OUTPATIEN 1 1 CARE ARMANI T VISIT ASSOCIATE 15 S MINUTES EMERGENCY 57771 TROY CARTER 1 1 EMERGENCY [facility] DEPARTMEN SERVICES T VISIT HIGH/URGE NT SEVERITY HOSPITAL [facility] - 1 1 [facility] OUTPATIEN INC T EMERGENCY 91605 [facility] 1 1 [facility] DEPARTMEN INC T VISIT LOW/MODER SEVERITY EMERGENCY 33291 TROY MISHRA 1 1 EMERGENCY DEPARTMEN SERVICES T VISIT HIGH/URGE NT SEVERITY EMERGENCY 40745 [facility] 1 1 [facility] DEPARTMEN INC T VISIT LOW/MODER SEVERITY [facility]OSP[facility] - 1 1 [facility] OUTPATIEN INC T EMERGENCY 51290 [facility] 1 1 [facility] DEPARTMEN INC T VISIT LOW/MODER SEVERITY [facility]OSP[facility] - 1 1 [facility] OUTPAT[facility] INC T EMERGENCY 32917 TROY MISHRA 1 1 EMERGENCY DEPARTMEN SERVICES T VISIT HIGH/URGE NT SEVERITY OFFICE 41172 [facility] ROBBINS OUTPATIEN 1 1 [facility] T VISIT CENTER CENTER 15 MINUTES HOSPITAL [facility] - 1 1 [facility] OUTPATIEN INC T OFFICE 43948 FAMILY MULBERRY OUTPATIEN 1 1 CARE ARMANI T VISIT ASSOCIATE 15 S MINUTES HOSPITAL [facility] - 1 1 [facility] OUTPAT[facility] INC T OFFICE 93277 FAMILY MULBERRY OUTPATIEN 0 0 CARE ARMANI T VISIT ASSOCIATE 15 S MINUTES OFFICE 77618 FAMILY MULBERRY OUTPATIEN 0 0 CARE ARMANI T VISIT ASSOCIATE 15 S MINUTES OFFICE 10019 [facility] ROBBINS OUTPATIEN 0 0 [facility] T VISIT CENTER CENTER 15 MINUTES HOSPITAL [facility] - 0 0 [facility] OUTPATIEN INC T EMERGENCY 60665 [facility] 9 9 [facility] DEPARTMEN INC T VISIT LOW/MODER SEVERITY [facility]OSPITAL [facility] - 9 9 [facility] OUTPATIEN INC T EMERGENCY 35474 TROY BAEZ, 9 9 EMERGENCY JHON DEPARTMEN SERVICES O T VISIT HIGH/URGE ASSOCIATE NT S SEVERITY OFFICE 11577 QUINCY BOUDREAUX 9 9 CARE GHAZAL T T VISIT ASSOCIATE 25 S MINUTES PERIODIC 28326 DHS/CO [facility] PREVENTIV 9 9 [facility] PATIENT BANK ACCT 12-17YRS EMERGENCY 74310 [facility] 9 9 [facility] DEPARTMEN INC T VISIT LOW/MODER SEVERITY HOSPITAL [facility] - 9 9 [facility] OUTPATIEN INC T EMERGENCY 59075 TROY CARTER, 9 9 EMERGENCY MELIA S DEPARTMEN SERVICES T VISIT HIGH/URGE ASSOCIATE NT S SEVERITY OFFICE 53963 FAMILY CARLA, J OUTPATIEN 8 8 CARE G T VISIT ASSOCIATE 15 S MINUTES INITIAL 71060 DHS/CO [facility] PREVENTIV 8 8 [facility] MEDICINE BANK ACCT NEW PT AGE 12-17 YR
--- OUTSIDE RECORDS SUMMARY | 2016-12-11 11:29 | External Medical Summary Rpt ---
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 MATHEW 6 6 PHYSICIAN MOON T VISIT S GROUP 15 MINUTES HOSP[facility] - 6 6 [facility] OUTPATIEN [facility] - 6 6 [facility] OFF[facility] 80952 [facility] MARK MATHEW 6 6 PHYSICIAN MOON T NEW 30 S GROUP MINUTES PERIODIC 25723 MULBERRY PREVENTIV 6 6 CARE ARMANI E MED EST ASSOCIATE PATIENT S 18-39 YRS OFFICE 27079 [facility] [address] OUTPATIEN 5 5 PHYSICIAN T VISIT S GROUP 15 MINUTES OFFICE 57077 [facility] RIZO OUTPATIEN 5 5 [facility] 15 MINUTES [facility] 5 5 [facility] T [facility] 5 5 [facility] T OFFICE 03329 [facility] PETTEY OUTPATIEN 5 5 PHYSICIAN JAM T NEW 30 S GROUP MINUTES [facility] - 5 5 [facility] - 5 5 [facility] OUTPATIEN INC T OFFICE 39588 FAMILY CROWDY OUTPATIEN 5 5 CARE CRI T VISIT ASSOCIATE 25 S MINUTES EMERGENCY 33839 KYE CATRER 5 5 PHYSICIAN MANUEL DEPARTMEN S, PLLC T VISIT HIGH/URGE NT SEVERITY OFFICE 42509 [facility] EMMA OUTPATIEN 4 4 PHYSICIAN MANUEL T NEW 20 S GROUP MINUTES PERIODIC 39615 [facility] PREVENTIV 4 4 PHYSICIAN E MED EST S GROUP PATIENT 18-39 YRS HOSPITAL [facility] - 3 3 [facility] INPATIENT INC OFFICE 08025 AMELIA CISNEROS OUTPATIEN 3 3 EMILY EMILY T VISIT 15 MINUTES OFFICE 87957 AMELIA HIE OUTPATIEN 3 3 EMILY EMILY T VISIT 15 MINUTES OFFICE 40319 AMELIA HIE OUTPATIEN 3 3 EMILY EMILY T VISIT 15 MINUTES OFFICE 47643 HARPEL HARPEL OUTPATIEN 3 3 MARLENY MARLENY T VISIT 15 MINUTES OFFICE 89071 AMELIA HIE OUTPATIEN 3 3 EMILY EMILY T VISIT 15 MINUTES OFFICE 04061 CISNEROS CISNEROS OUTPATIEN 3 3 EMILY EMILY T VISIT 15 MINUTES OFFICE 97078 CISNEROS CISNEROS OUTPATIEN 3 3 EMILY EMILY T VISIT 15 MINUTES OFFICE 35989 CISNEROS CISNEROS OUTPATIEN 3 3 EMILY EMILY T VISIT 5 MINUTES OFFICE 96398 CISNEROS CISNEROS OUTPATIEN 3 3 EMILY EMILY T VISIT 15 MINUTES OFFICE 56151 MULBERRY MULBERRY OUTPATIEN 3 3 ARMANI ARMANI T VISIT 15 MINUTES OFFICE 22375 CISNEROS CISNEROS OUTPATIEN 3 3 EMILY EMILY T VISIT 15 MINUTES OFFICE 37637 FAMILY OUTPATIEN 3 3 CARE T VISIT ASSOCIATE 15 S MINUTES OFFICE 97350 CARLA Adamson OUTPATIEN 3 3 G G T VISIT 15 MINUTES [facility] 2 2 [facility] T OFFICE 46769 FAMILY OUTPATIEN 2 2 CARE T VISIT ASSOCIATE 15 S MINUTES EMERGENCY 96907 TROY BHAT 2 2 EMERGENCY DEPARTMEN SERVICES T VISIT HIGH/URGE NT SEVERITY [facility]OSP[facility] - 2 2 [facility] OUTPATI[facility] INC T EMERGENCY 55660 [facility] 2 2 [facility] DEPARTMEN INC T VISIT LOW/MODER SEVERITY EMERGENCY 26226 EMMA CARTER 2 2 [facility] DEPARTMEN T VISIT HIGH/URGE NT SEVERITY EMERGENCY 58912 [facility] 2 2 [facility] DEPARTMEN INC T VISIT LIMITED/M INOR PROB HOSPITAL [facility] - 2 2 [facility] OUTPATIEN INC T PERIODIC 09566 JAVIER HERRERA PREVENTIV 2 2 MARIANA MARIANA E MED EST PATIENT 18-39 YRS [facility] - 2 2 [facility] INPATIENT INC OFFICE 03459 STRAWZELL STRAWZELL OUTPATIEN 2 2 CRI CRI T VISIT 15 MINUTES OFFICE 07709 AMELIA CISNEROS OUTPATIEN 2 2 EMILY EMILY T VISIT 5 MINUTES [facility]OSP[facility] 2 2 [facility] OUTPATIEN INC T OFFICE 15179 AMELIA CISNEROS OUTPATIEN 2 2 EMILY EMILY T VISIT 15 MINUTES OFFICE 35053 LUIS SMITH CONSULTAT 1 1 JOSE JOSE ION NEW/ESTAB PATIENT 30 MIN [facility] - 1 1 DENOMINATIONAL OUTPATIEN HOSP [facility] - 1 1 [facility] OUTPATIEN INC T OFFICE 20784 [facility] OUTPATIEN 1 1 HEALTH EMILY T VISIT CLINIC OF 15 GABRIEL MINUTES OFFICE 16587 FAMILY SIMIN OUTPATIEN 1 1 CARE ARMANI T VISIT ASSOCIATE 15 S MINUTES EMERGENCY 68841 TROY CARTER 1 1 EMERGENCY [facility] DEPARTMEN SERVICES T VISIT HIGH/URGE NT SEVERITY [facility]OSP[facility] - 1 1 [facility] OUTPATIEN INC T EMERGENCY 63747 [facility] 1 1 [facility] DEPARTMEN INC T VISIT LOW/MODER SEVERITY EMERGENCY 34712 TROY MISHRA 1 1 EMERGENCY DEPARTMEN SERVICES T VISIT HIGH/URGE NT SEVERITY EMERGENCY 33391 [facility] 1 1 [facility] DEPARTMEN INC T VISIT LOW/MODER SEVERITY [facility] 1 1 [facility] OUTPATI[facility] INC T EMERGENCY 43219 [facility] 1 1 [facility] DEPARTMEN INC T VISIT LOW/MODER SEVERITY [facility]OS[facility] - 1 1 [facility] OUTPATIEN INC T EMERGENCY 14118 TROY MISHRA 1 1 EMERGENCY DEPARTMEN SERVICES T VISIT HIGH/URGE NT SEVERITY OFFICE 25416 [facility] ROBBINS OUTPATIEN 1 1 [facility] CENTER 15 MINUTES HOSPITAL [facility] - 1 1 [facility] OUTPATIEN INC T OFFICE 63955 FAMILY MULBERRY OUTPATIEN 1 1 CARE ARMANI T VISIT ASSOCIATE 15 S MINUTES [facility]OSP[facility] - 1 1 [facility] T OFFICE 30534 FAMILY MULBERRY OUTPATIEN 0 0 CARE ARMANI T VISIT ASSOCIATE 15 S MINUTES OFFICE 22656 FAMILY MULBERRY OUTPATIEN 0 0 CARE ARMANI T VISIT ASSOCIATE 15 S MINUTES OFFICE 83873 [facility] ROBBINS OUTPATIEN 0 0 [facility] VIS[facility] CENTER 15 MINUTES HOSPITAL [facility] 0 0 [facility] OUTPATIEN INC T EMERGENCY 25564 [facility] 9 9 [facility] DEPARTMEN INC T VISIT LOW/MODER SEVERITY [facility]OSPITAL [facility] - 9 9 [facility] OUTPATIEN INC T EMERGENCY 36791 TROY BAEZ, 9 9 EMERGENCY JHON DEPARTMEN SERVICES O T VISIT HIGH/URGE ASSOCIATE NT S SEVERITY OFFICE 84825 QUINCY BOUDREAUX 9 9 CARE GHAZAL T T VISIT ASSOCIATE 25 S MINUTES PERIODIC 99099 [facility] PREVENTIV 9 9 [facility] E [facility] PATIENT BANK ACCT 12-17YRS EMERGENCY 66032 [facility] 9 9 [facility] DEPARTMEN INC T VISIT LOW/MODER SEVERITY [facility]OSPITAL [facility] - 9 9 [facility] OUTPATIEN INC T EMERGENCY 44094 TROY CARTER, 9 9 EMERGENCY MELIA S DEPARTMEN SERVICES T VISIT HIGH/URGE ASSOCIATE NT S SEVERITY OFFICE 07737 FAMILY CARLA, J OUTPATIEN 8 8 CARE G T VISIT ASSOCIATE 15 S MINUTES INITIAL 17611 DHS/[facility] PREVENTIV 8 8 [facility] MEDICINE BANK ACCT NEW PT AGE 12-17 YR
--- OUTSIDE RECORDS SUMMARY | 2016-12-11 11:30 | External Medical Summary Rpt ---
Author Author JADEN Stubbs, JADEN Stubbs Organization [employer] Address Unknown Phone Unavailable
--- OUTSIDE RECORDS SUMMARY | 2016-12-11 11:30 | External Medical Summary Rpt ---
Author Author , JADEN STANLEY Address Unknown Phone [email or web address] Immunization Name Date Rout CVX Reac Dose Comm Prov Is Faci e tion ent ider Refu lity Give sed n MMR 12-0 3 999 Hist H149 No H149 1-19 oric 97 al Info rmat ion - Sour ce Unsp ecif ied
--- OUTSIDE RECORDS SUMMARY | 2016-12-11 11:30 | External Medical Summary Rpt ---
Author Author , JADEN STANLEY Address Unknown Phone [email or web address] Immunization Name Date Rout CVX Reac Dose Comm Prov Is Faci e tion ent ider Refu lity Give sed n MMR 12-0 3 999 Hist H149 No H149 1-19 oric 97 al Info rmat ion - Sour ce Unsp ecif ied
[2016-12-11 11:48] VITALS: BP 130/72
--- NOTE | 2016-12-11 16:42 | RADIOLOGY REPORT PS360 ---
US PREG > 14 WEEKS SNGL/GEST CLINICAL INDICATION: Pelvic pain pain-- 16 WK WITH PELVIC PAIN ORDERING PHYSICIAN: Jay Up MD PATIENT AGE: 26 years COMPARISON: None FINDINGS: There is a single live fetus present cephalic presentation. Average ultrasound age is 16 weeks 2 days. All parameters correlate. heart tones are present at 156 bpm. There is a small amount fluid in the cervix. Cervical length is 4 cm. The placenta is anterior fundal. No abruption apparent. [place] Tom contraction noted posteriorly. There is a nuchal cord. IMPRESSION: 1. Live IUP at 16 weeks 2 days 2. Anterior and fundal placenta with Maximo Tom contraction. 3. Nuchal CORD noted
[2017-01-03] MEDS ORDERED: PRENATAL PLUS1 TA1 PO (11:07)
[2017-01-03] MEDS ORDERED: PROMETHAZINE HC25 M1 PO (11:50)
== END 2016-12-11 11:49 | disposition home or self-care (01) ==
LOC: ER 10:40
PROVIDERS: Emergency Medicine
DX: O26.892 Other specified pregnancy related conditions, second trimester (principal); R10.30 Lower abdominal pain, unspecified; M54.5 Low back pain; Z3A.16 16 weeks gestation of pregnancy

== ENCOUNTER → 2017-04-06 | Outpatient (CLI) | payer MEDICAID ==
[~2017-04-06] MED LIST changes: +PROMETHAZINE HC25 M1 PO
--- NOTE | 2017-04-07 08:35 | RADIOLOGY REPORT PS360 ---
ULTRASOUND THYROID PROCEDURE: Multiple sagittal & transverse ultrasound images of the thyroid. BH HISTORY: Left thyroid and parathyroid removed in 2016. 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 ----- FINDINGS: RIGHT LOBE: Overall 4.4 scm in length x 2.9 cm transverse x 1.7 cm AP . The length measurement is not well documented on this image set Nodule A: Solid nodule upper pole right lobe. 2.6 cm length x 1.2 cm AP 1.3 cm.. Although the margins are again somewhat ill-defined of this nodule appears larger and longer than on previous studies... Nodule B: Solid nodule measuring 2.9 cm in length as 1.6 cm in AP. X 2.2 cm transverse.. This nodule appears more generous in girth & slightly larger overall than previous studies. With Increase color Doppler flow at its inferior aspect. ISTHMUS: Slight Generous thickness measuring 4.6 mm AP but otherwise LEFT LOBE thyroid and left parathyroids were surgically removed since prior study IMPRESSION 1. Left lobe thyroid has been surgically removed since previous 2016 study 2. Right lobe contains 2 large nodules. Both Appear slightly larger then previous study. Solid Nodule at upper pole right lobe now measuring noted 2.6 x 1.2 cm Largest Solid nodule towards lower pole right lobe now measuring 2.9 x 1.6 cm x 2.2 cm.
== END ==
LOC: RAD 10:00
DX: E03.9 Hypothyroidism, unspecified (principal); E01.0 Iodine-deficiency related diffuse (endemic) goiter

== ENCOUNTER → 2017-04-23 | Outpatient (CLI) | payer MEDICAID ==
[~2017-04-23] MED LIST changes: +HYDROMORPHONE2 MG PO
--- NOTE | 2017-04-25 08:12 | RADIOLOGY REPORT PS360 ---
US PREG FOLLOWUP SINGLE FETUS, US BIOPHYSICAL PROFILE, SD RATIO UMBILICAL ARTERY: Indication: Evaluate position and growth GROWTH, BREECH ORDERING PHYSICIAN: Jonny Crain MD PATIENT AGE: 26 years FINDINGS: There is a single live fetus in the breech presentation. Placenta is anterior and grade 1. No previa or production The following parameters are obtained: Average ultrasound age is 36 weeks 2 days. Estimated due date by ultrasound is 05/19/2017. Estimated weight is 2776 g. This is a 60th percentile BPD: 36 weeks 1 day OFD: OFD HC: 37 weeks 4 days AC: 35 weeks 6 days FL: 35 weeks 1 day heart rate: 146 bpm. HC/AC: 1.03 Cephalic index: 75% FL/BPD: 77% FL/AC: 21% Amniotic fluid index: 9.02 Qualitative AFV: 2 breathing movements: 2 Gross body movements: 2 Tone: 2 Biophysical profile score: 8/8 Doppler evaluation of the umbilical artery: SD ratio: 3.2 Resistive index: 0.69 No obvious anomalies evident. Placenta: Anterior Cervix: Appears closed and measures 3 cm IMPRESSION: There is a single live fetus with average ultrasound age of 36 weeks 2 days in breech position. Biophysical profile is 8 of 8 with unremarkable Doppler evaluation of the umbilical artery. There has been adequate progression compared to the previous study of 12/11/2016
== END ==
LOC: RAD 13:00
DX: O32.1XX0 Maternal care for breech presentation, not applicable or unspecified (principal)

== ENCOUNTER 2017-04-30 10:33 | Outpatient (CLI) | payer MEDICAID ==
[~2017-04-30] VITALS: Ht 157.5 cm; Wt 93.0 kg
[~2017-04-30 10:33] MED LIST changes: -HYDROMORPHONE2 MG PO
[2017-04-30 10:46] VITALS: BP 118/71
[2017-04-30 11:16] LABS: URINE BILIRUBIN - DIPSTICK NEGATIVE (NEG); URINE BLOOD TRACE-INTACT (NEG)
[2017-04-30 11:24] LABS: AMPHETAMINES/METAMPHETAMINES NEGATIVE ng/mL (<1000)
[2017-04-30 11:27] LABS: URINE SQUAMOUS CELLS OCC #/hpf (0-5)
[2017-05-03] MEDS ORDERED: HYDROMORPHONE2 MG PO (08:01)
== END 2017-04-30 11:45 | disposition home or self-care (01) ==
LOC: OBOUT 10:33 → OB 10:33 → OBOUT 11:45
PROVIDERS: Nurse Practitioner Obstetrics & Gynecology
DX: O36.8130 Decreased fetal movements, third trimester, not applicable or unspecified (principal); Z3A.36 36 weeks gestation of pregnancy